=== PATIENT | female | born 1985 | race Caucasian/White ===

== ENCOUNTER 2018-03-16 10:28 | Emergency (ER) | payer OTHER ==
--- NOTE | 2018-03-16 10:51 | ED ---
General Adult HPI - General Chief complaint: Upper Respiratory Infection Stated complaint: cough/congestion Time Seen by Provider: 03/16/18 10:41 Source: patient, RN notes reviewed Mode of arrival: ambulatory Limitations: no limitations - History of Present Illness Initial comments: Patient 32-year-old female presenting to the emergency room today with a chief complaint of cough congestion over the last 2 weeks. Patient does admit that she began feeling some discomfort left side of the upper back and was worried about pneumonia. Patient doesn't that she's had green sputum production. She does admit some rhinorrhea. Patient denies any recorded temperatures. Denies any other complaints or symptoms at this time. Patient denies any recent fever, chills, shortness of breath, chest pain, back pain, abdominal pain, nausea or vomiting, numbness or tingling, headaches or visual changes, or any other complaints. - Related Data Home Medications Medication Instructions Recorded Confirmed Ibuprofen [Motrin Ib] 400 mg PO Q6H PRN 03/16/18 03/16/18 Previous Rx's Medication Instructions Recorded Azithromycin [Zithromax Z-pack] 0 mg PO DIRECTED #6 tab 03/16/18 Ibuprofen [Motrin] 600 mg PO Q6HR PRN #20 day 03/16/18 Allergies Allergy/AdvReac Type Severity Reaction Status Date / Time No Known Allergies Allergy Verified 03/16/18 10:41 Review of Systems ROS Statement: Those systems with pertinent positive or pertinent negative responses have been documented in the HPI. ROS Other: All systems not noted in ROS Statement are negative. Past Medical History Past Medical History: No Reported History History of Any Multi-Drug Resistant Organisms: None Reported Additional Past Surgical History / Comment(s): rhinoplasty 2010 Past Psychological History: No Psychological Hx Reported Smoking Status: Never smoker Past Alcohol Use History: Occasional Past Drug Use History: Marijuana General Exam - General Exam Comments Initial Comments: General: The patient is awake and alert, in no distress, and does not appear acutely ill. Eye: extra-ocular movements are intact. No nystagmus. There is normal conjunctiva bilaterally. No signs of icterus. Ears, nose, mouth and throat: There are moist mucous membranes and no oral lesions. Neck: The neck is supple, there is no tenderness or JVD. Cardiovascular: There is a regular rate and rhythm. No murmur, rub or gallop is appreciated. Respiratory: Lungs are clear to auscultation, respirations are non-labored, breath sounds are equal. No wheezes, stridor, rales, or rhonchi. Musculoskeletal: Normal ROM, no tenderness. Sensation intact. Neurological: A&O x 3. CN II-XII intact, There are no obvious motor or sensory deficits. Coordination appears grossly intact. Speech is normal. Skin: Skin is warm and dry and no rashes or lesions are noted. Psychiatric: Cooperative, appropriate mood & affect, normal judgment. Limitations: no limitations Course Vital Signs 03/16/18 03/16/18 10:31 11:05 Temperature 98.2 F Pulse Rate 97 Respiratory 16 18 Rate Blood Pressure 129/87 O2 Sat by Pulse 100 Oximetry Medical Decision Making - Medical Decision Making X-ray reviewed negative for any sign of pneumonia. No other acute abnormality. Results were discussed with patient. Patient does admit to cough congestion over the past 2 weeks. Will be treated for bronchitis infection with azithromycin. Advised follow-up with family doctor return if symptoms increase or worsen. Disposition Clinical Impression: Acute bronchitis Disposition: HOME SELF-CARE Condition: Good Instructions: Upper Respiratory Infection (ED) Additional Instructions: Please use medication as discussed. Please follow-up with family doctor in the next 2 days of symptoms have not improved. Please return to emergency room if the symptoms increase or worsen or for any other concerns. Prescriptions: Azithromycin [Zithromax Z-pack] 0 mg PO DIRECTED #6 tab Ibuprofen [Motrin] 600 mg PO Q6HR PRN #20 day PRN Reason: Pain Is patient prescribed a controlled substance at d/c from ED?: No Referrals: None,Stated [Primary Care Provider] - 1-2 days Time of Disposition: 11:50
[2018-03-16 11:06] VITALS: RESP 18
--- NOTE | 2018-03-16 11:26 | XR ---
EXAMINATION TYPE: XR chest 2V DATE OF EXAM: 03/16/2018 COMPARISON: NONE HISTORY: Chest pain TECHNIQUE: Single frontal view of the chest is obtained. FINDINGS: There is no focal air space opacity, pleural effusion, or pneumothorax seen. The cardiac silhouette size is within normal limits. The osseous structures are intact. IMPRESSION: 1. No acute process.
[2018-03-16] MEDS ORDERED: IBUPROFEN 600 MG TAB PO STA (11:50)
[2018-03-16 12:09] VITALS: BP 138/80; PULSE 78; TEMP 97.4
== END 2018-03-16 12:08 | disposition home or self-care (01) ==
LOC: EC 10:28
DX: J20.9 Acute bronchitis, unspecified (principal)
CPT/HCPCS: 71046; 99283

== ENCOUNTER → 2020-07-20 | Outpatient (CLI) | payer OTHER ==
--- NOTE | 2020-07-20 15:37 | US ---
EXAMINATION TYPE: Transabdominal DATE OF EXAM: 07/20/2020 2:34 PM COMPARISON: NONE CLINICAL HISTORY: Z36 confirm dates. Confirm dates, 3, para 2 EXAM PERFORMED: Transabdominal (TA) EXAM MEASUREMENTS: GESTATIONAL AGE / DATING Physician Established: (9 weeks/6 days) EDC: 02/16/2021 Dates by LMP: Unknown ( weeks/ days) EDC: Dates by First Scan: This is 1st scan Dates by Current Scan for: ( 8 weeks/5 days) EDC: 02/24/2021 MATERNAL ANATOMY Uterus: 9.3 x 6.4 x 7.0cm, anteverted Right Ovary: 3.1 x 2.0 x 2.5cm Left Ovary: 3.0 x 1.6 x 1.9cm Post CDS / Adnexa: wnl Presence of free fluid: no Presence of corpus luteal cyst: right ovary: 1.8 x 1.1 x 1.5cm Presence of subchorionic bleed: wnl GESTATION / SURVEY CRL: 2.1cm (8 weeks/5 days) Yolk Sac (normal less than 6mm): 4.0mm Heart Rate: 172 bpm Rhythm: Normal IUP: Viable IUP Viable single IUP IMPRESSION: 1. Single intrauterine gestation estimated at 8 weeks 5 days gestation based on crown-rump length. Ca rdiac activity measures 172 bpm. 2. Right ovarian cyst
== END | disposition home or self-care (01) ==
LOC: RADUSWWP 14:14
PROVIDERS: ATTEND Obstetrics & Gynecology
DX: N83.201 Unspecified ovarian cyst, right side (principal); Z3A.08 8 weeks gestation of pregnancy
CPT/HCPCS: 76801

== ENCOUNTER 2020-10-09 15:28 | Emergency (ER) | payer OTHER ==
[2020-10-09 15:33] VITALS: BP 128/88; PULSE 100; RESP 18; TEMP 98.3
[2020-10-09] MEDS ORDERED: LIDOCAINE 1% INJ 10MG/ML (20 ML MDV) SQ ONE (15:52)
[2020-10-09] MEDS ORDERED: BACITRACIN OINT 1 EACH PACKET TOPICAL ONE (15:52)
--- NOTE | 2020-10-09 16:15 | ED ---
Wound/Laceration HPI - General Chief Complaint: Wound/Laceration Stated Complaint: [facility]- R hand laceration Time Seen by Provider: 10/09/20 15:42 Source: patient Mode of arrival: ambulatory Limitations: no limitations - History of Present Illness Initial Comments: Patient is a 35-year-old female presenting to the emergency Department with complaints of a laceration on her right hand. Patient states she was pouring a drink at work today at when the glass broke and slipped in her hand and cut her in the webbing space between the first and second digit on the right hand. She is currently 5 months . She is not on blood thinners. Bleeding is controlled with bandage. Her tetanus shot is not up-to-date. She has no further complaints. - Related Data Home Medications Medication Instructions Recorded Confirmed Ibuprofen [Motrin Ib] 400 mg PO Q6H PRN 03/16/18 03/16/18 Previous Rx's Medication Instructions Recorded Azithromycin [Zithromax Z-pack (6 0 mg PO DIRECTED #6 tab 03/16/18 tabs)] Ibuprofen [Motrin] 600 mg PO Q6HR PRN #20 day 03/16/18 Allergies Allergy/AdvReac Type Severity Reaction Status Date / Time No Known Allergies Allergy Verified 10/09/20 15:33 Review of Systems ROS Statement: Those systems with pertinent positive or pertinent negative responses have been documented in the HPI. ROS Other: All systems not noted in ROS Statement are negative. Past Medical History Past Medical History: No Reported History History of Any Multi-Drug Resistant Organisms: None Reported Additional Past Surgical History / Comment(s): rhinoplasty 2009, Past Psychological History: No Psychological Hx Reported Smoking Status: Never smoker Past Alcohol Use History: Occasional Past Drug Use History: Marijuana General Exam - General Exam Comments Initial Comments: GENERAL: Patient is well-developed and well-nourished. Patient is nontoxic and in no acute distress. HEAD: Atraumatic, normocephalic. EYES: Pupils equal round and reactive to light, extraocular movements intact, sclera anicteric, conjunctiva are normal. Eyelids were unremarkable. ENT: TMs normal, nares patent, oropharynx clear without exudates. Moist mucous membranes. NECK: Normal range of motion, supple without lymphadenopathy or JVD. LUNGS: Unlabored respirations. Breath sounds clear to auscultation bilaterally and equal. No wheezes rales or rhonchi. HEART: Regular rate and rhythm without murmurs, rubs or gallops. ABDOMEN: Soft, nontender, normoactive bowel sounds. No guarding, no rebound. No masses appreciated. : Deferred MUSCULOSKELETAL: Normal extremities with adequate strength and normal range of motion, no pitting or edema. No clubbing or cyanosis. NEUROLOGICAL: Patient is alert and oriented x 3. Motor and sensory are also intact. Cranial nerves II through XII grossly intact. Symmetrical smile. Normal speech, normal gait. PSYCH: Normal mood, normal affect. SKIN: Warm, Dry, normal turgor, no rashes. Patient has a 1 cm V-shaped laceration in the webbing space between the first and second digit, bleeding is controlled. Limitations: no limitations Course Vital Signs 10/09/20 15:30 Temperature 98.3 F Pulse Rate 100 Respiratory 18 Rate Blood Pressure 128/88 O2 Sat by Pulse 100 Oximetry Procedures - Laceration Laceration #1 Consent Obtained: verbal consent Indication: laceration Site: hand (Webbing space between the first and second digit of the right hand) Size (cm): 1 Description: flap Depth: simple, single layer Anesthetic Used: lidocaine 1% Anesthesia Technique: local infiltration Amount (mls): 3 Pre-repair: irrigated extensively Type of Sutures: nylon Size of Sutures: 5-0 Number of Sutures: 3 Technique: simple, interrupted Patient Tolerated Procedure: well Medical Decision Making - Medical Decision Making Patient is 35-year-old female here with a 1 cm V-shaped laceration in the webbing space between the first and second digit on the right hand. She did this while at work, glass broke. We did update her tetanus shot today. X-rays reveal no acute foreign bodies in her hand. Patient's wound was cleaned, closed with 3, 5-0 sutures. She tolerated procedure well. She is stable for discharge. She will have sutures removed in 7-10 days. She is in agreement with this plan of care. Disposition Clinical Impression: Laceration of right hand Disposition: HOME SELF-CARE Condition: Stable Instructions (If sedation given, give patient instructions): Care For Your Stitches (ED) Additional Instructions: Please return to the Emergency Department if symptoms worsen or any other concerns. Keep wound clean and dry. Please cover while working. Stitches need to be removed in 7-10 days. Is patient prescribed a controlled substance at d/c from ED?: No Referrals: None,Stated [Primary Care Provider] - 1-2 days
[2020-10-09] MEDS ORDERED: DIPH,PERTUS(ACELL)TETVAC-LF 0.5 ML VIAL IM ONE (16:18)
--- NOTE | 2020-10-09 16:20 | XR ---
EXAMINATION TYPE: XR hand limited RT DATE OF EXAM: 10/09/2020 COMPARISON: NONE HISTORY: Pain and laceration between the first and second digit TECHNIQUE: Three views are submitted. FINDINGS: The osseous structures are intact. The joint spaces are preserved and there is no acute fracture or dislocation. IMPRESSION: 1. No definite acute fracture or dislocation if symptoms persist, follow-up study in 7 to 10 days wo uld be suggested
== END 2020-10-09 16:48 | disposition home or self-care (01) ==
LOC: EC 15:28
DX: S61.411A Laceration without foreign body of right hand, initial encounter (principal); F12.90 Cannabis use, unspecified, uncomplicated; Z23 Encounter for immunization; W25.XXXA Contact with sharp glass, initial encounter
CPT/HCPCS: 73120; 90715; 99283; 12001; 90471; J2001

== ENCOUNTER 2021-01-26 13:27 | Outpatient (CLI) | payer OTHER ==
[2021-01-26 14:13] VITALS: BP 134/89; PULSE 97; RESP 18; TEMP 97.1
--- NOTE | 2021-01-27 08:17 | P.MSEPDOC ---
Presenting Problems - Arrival Data Date of Arrival on Unit: 01/26/21 Time of Arrival on Unit: 13:26 Mode of Transport: Ambulatory - Complaint OB-Reason for Admission/Chief Complaint: NST Comment: reports decrease movement since yesterday afternoon. Medical History - Information : 4 Para: 2 Term: 2 : 0 Abortions: Spontaneous or Elective: 1 Number of Living Children: 2 - Gestational Age Gestational Age by JUSTUS (wks/days): 35 Weeks and 6 Days Review of Systems - Review of Systems Constitutional: No problems Breast: No problems ENT: No problems Cardiovascular: No problems Respiratory: No problems Gastrointestinal: No problems Genitourinary: No problems Musculoskeletal: No problems Neurological: No problems Skin: No problems Vital Signs - Temperature Temperature: 97.1 F Temperature Source: Temporal Artery Scan - Pulse Right Pulse Rate: 97 Pulse Assessment Method: Pulse Oximetry - Respirations Respiratory Rate: 18 Oxygen Delivery Method: Room Air O2 Sat by Pulse Oximetry: 97 - Blood Pressure Right Arm Blood Pressure: 134/89 Blood Pressure Mean: 104 Blood Pressure Source: Automatic Cuff Medical Screen Scoring - Cervical Exam Membranes: Intact - Uterine Contractions Intensity: Absent - Assessment - Baby A Baseline FHR: 135 Heart Rate - NICHD Category: Category I (Normal) NST: Reactive Physician Notification - Physician Notified Physician Notified Date: 01/26/21 Physician Notified Time: 13:58 Physician: New Order Received: Yes (discharge home with follow up instructions.) Maternal Triage Index - Maternal Triage Index Presenting for scheduled procedure w/no complaint: No - Stat/Priority 1 Stat Priority 1: No - Urgent/Priority 2 Urgent Priority 2: No - Prompt/Priority 3 Prompt Priority 3: No - Non-Urgent/Priority 4 Non-Urgent Priority 4: No - Scheduled/Requesting Priority 5 Scheduled/Requesting Priority 5: Yes Criteria Met for Priority 5: NST Disposition - Disposition OB Disposition: Discharge to home Discharge Date: 01/26/21 Discharge Time: 13:59 I agree with the RN Medical Screening Exam: Yes Case reviewed; plan agreed upon as documented in EMR&OBIX.: Yes Diagnosis: DECREASED MOVEMENTS, THIRD TRIMESTER, FETUS 1 (Patient presents to labor and delivery with complaints of change in movement. Patient states that she's feeling the baby move but not is vigorously had she previously. monitoring shows a category 1 heart tones which is very reassuring. Patient was reassured and will follow up with NST on Thursday.)
== END 2021-01-26 13:59 | disposition home or self-care (01) ==
LOC: FBPOP 13:27
PROVIDERS: ATTEND Obstetrics & Gynecology
DX: O36.8130 Decreased fetal movements, third trimester, not applicable or unspecified (principal); Z3A.35 35 weeks gestation of pregnancy
CPT/HCPCS: 59025; G0463; 99213

== ENCOUNTER 2021-02-12 12:22 | Inpatient (IN) | payer OTHER ==
[2021-02-12] MEDS ORDERED: AMPICILLIN 2,000 MG in SODIUM CHLORIDE 0.9% 100 ML IVPB STA (12:47)
[2021-02-12] MEDS ORDERED: LIDOCAINE 0.5% (PF) 5 MG/ML (50 ML SDV) SQ PRN (12:47)
[2021-02-12] MEDS ORDERED: CARBOPROST TROMETHAMINE 250 MCG/ML 1 ML AMP IM PRN (12:47)
[2021-02-12] MEDS ORDERED: OXYTOCIN 10 UNIT/ML 1 ML VIAL IM PRN (12:47)
[2021-02-12] MEDS ORDERED: METHYLERGONOVINE 0.2 MG/ML 1 ML AMP IM PRN (12:47)
[2021-02-12] MEDS ORDERED: TERBUTALINE 1 MG/ML VIAL SQ PRN (12:47)
[2021-02-12] MEDS: LACTATED RINGERS 1,000 ML IV SCH ×3 (12:55→21:54)
[2021-02-12] MEDS ORDERED: OXYTOCIN 30 UNITS/500 ML NS 30 UNIT in SALINE 1 500ML.BAG IV SCH (13:00)
[2021-02-12 14:16] LABS: Basophils % (A) 0 %; Eosinophils # (A) 0.1 k/uL (0-0.7); Eosinophils % (A) 1 %; HCT 32.3 % (34.0-46.0); HGB 10.1 gm/dL (11.4-16.0); Hypochromasia Moderate; Lymphocytes # (A) 1.8 k/uL (1.0-4.8); Lymphocytes % (A) 20 %; MCH 22.2 pg (25.0-35.0); MCHC 31.1 g/dL (31.0-37.0); MCV 71.4 fL (80.0-100.0); Mean Platelet Volume 7.3; Microcytosis Moderate; Monocytes # (A) 0.4 k/uL (0-1.0); Monocytes % (A) 5 %; Neutrophils # (A) 6.4 k/uL (1.3-7.7); Neutrophils % (A) 71 %; Platelet Count 218 k/uL (150-450); Poikilocytosis Slight; RBC 4.53 m/uL (3.80-5.40); RDW 15.8 % (11.5-15.5)
[2021-02-12] MEDS ORDERED: BUTORPHANOL 1 MG/ML 1 ML VIAL IV PRN (16:23)
--- NOTE | 2021-02-12 16:53 | P.HPOB ---
History of Present Illness H&P Date: 02/12/21 Chief Complaint: Oligohydramnios This patient is a pleasant 35-year-old 4 para 2 female estimated date of confinement 02/24/2021 estimated gestational age 38-2/7 weeks who presents to labor and delivery for induction secondary to severe oligohydramnios. Patient was in the office earlier today and ultrasound showed amniotic fluid excessive 2.5. Patient therefore was recommended proceed with delivery. Patient's care is otherwise complicated by advanced for maternal age. She did have a normal maternal ET 21 and anatomy ultrasound. She also was double footling breech approximately several weeks ago however this spontaneously converted to vertex. Patient now presents for delivery. Review of Systems Genitourinary: Reports Menstruation: Reports amenorrhea Past Medical History Past Medical History: No Reported History History of Any Multi-Drug Resistant Organisms: None Reported Additional Past Surgical History / Comment(s): rhinoplasty 2009; D&C. Past Anesthesia/Blood Transfusion Reactions: No Reported Reaction Past Psychological History: No Psychological Hx Reported Smoking Status: Never smoker Past Alcohol Use History: Occasional - Past Family History Father Family Medical History: Congestive Heart Failure (CHF) Medications and Allergies Home Medications Medication Instructions Recorded Confirmed Type No Known Home Medications 01/26/21 01/26/21 History Allergies Allergy/AdvReac Type Severity Reaction Status Date / Time No Known Allergies Allergy Verified 02/12/21 12:47 Exam Vital Signs Temp Pulse Resp BP Pulse Ox 02/12/21 15:01 98.2 F 106 H 16 148/77 99 Intake and Output 02/12/21 02/12/21 02/12/21 06:59 14:59 22:59 Other: # Voids 2 Weight 102.965 kg 102.965 kg - OBG Physical Exam Abdomen: bowel sounds normal, no diffuse tenderness, no bruit present, no guarding noted, no hepatomegaly, no splenomegaly, no mass Vulva: both: normal Vagina: normal moisture, no discharge Cervix: no lesion (Cervix is 2 and thick. There is no evidence of rupture membranes), no discharge Uterus: enlarged (Fundal height is 38 cm) Results blood work shows she is A positive, rubella immune, RPR nonreactive, hepatitis B negative, HIV is nonreactive, Glucola was normal, maternity T 21 was 46 XY, group B strep was positive. Ultrasound shows normal growth 7 lbs. 7 oz. but and severe oligohydramnios with amniotic fluid excess 2.5 Result Diagrams: 02/12/21 12:50 Abnormal Lab Results - Last 24 Hours (Table) 02/12/21 Range/Units 12:50 Hgb 10.1 L (11.4-16.0) gm/dL Hct 32.3 L (34.0-46.0) % MCV 71.4 L (80.0-100.0) fL MCH 22.2 L (25.0-35.0) pg RDW 15.8 H (11.5-15.5) % Assessment and Plan Assessment: This is a pleasant 35-year-old 4 para 2 female 38 and one sevenths weeks gestation admitted to labor and delivery for delivery secondary to severe oligohydramnios. Patient is a positive group B strep culture and therefore be given IV antibiotics. Plan is artificial rupture membranes and Pitocin induction of labor. Anticipate vaginal delivery. (1) 38 weeks gestation of Current Visit: Yes Status: Acute Code(s): Z3A.38 - 38 WEEKS GESTATION OF SNOMED Code(s): 59351093 (2) Oligohydramnios Current Visit: Yes Status: Acute Code(s): O41.00X0 - OLIGOHYDRAMNIOS, UNSP TRIMESTER, NOT APPLICABLE OR UNSP SNOMED Code(s): 93667291 (3) Group B streptococcal carriage complicating Current Visit: Yes Status: Acute Code(s): O99.820 - STREPTOCOCCUS B CARRIER STATE COMPLICATING SNOMED Code(s): 557901297168112 (4) Elderly multigravida Current Visit: Yes Status: Acute Code(s): O09.529 - SUPERVISION OF ELDERLY MULTIGRAVIDA, UNSPECIFIED TRIMESTER SNOMED Code(s): 937358244
[2021-02-12] MEDS: AMPICILLIN 1,000 MG in SODIUM CHLORIDE 0.9% 50 ML IVPB SCH ×2 (17:36→21:53)
[2021-02-12] MEDS ORDERED: ROPIVACAINE 5MG/ML 20ML VIAL ONE (19:14)
[2021-02-12] MEDS ORDERED: SODIUM CHLORIDE 0.9% 100 ML BAG ONE (19:14)
[2021-02-12] MEDS ORDERED: fentaNYL (PF) 50 MCG/ML 5 ML AMP ONE (19:14)
[2021-02-13] MEDS ORDERED: diphenhydrAMINE 50 MG/ML 1 ML VIAL IVP PRN ×2 (00:41)
[2021-02-13] MEDS ORDERED: ZOLPIDEM 5 MG TAB PO PRN (00:41)
[2021-02-13] MEDS ORDERED: LANOLIN CREAM 5 GM TUBE TOPICAL PRN (00:41)
[2021-02-13] MEDS ORDERED: SIMETHICONE 80 MG CHEWABLE PO PRN (00:41)
[2021-02-13] MEDS ORDERED: diphenhydrAMINE 25 MG CAP PO PRN (00:41)
[2021-02-13] MEDS ORDERED: BENZOCAINE/MENTHOL SPRAY 1 GM/SPRAY AEROSOL TOPICAL PRN (00:41)
[2021-02-13] MEDS ORDERED: HYDROCORTISONE 2.5% RECTAL CREAM 30 GM TUBE RECTAL PRN (00:41)
[2021-02-13] MEDS ORDERED: diphenhydrAMINE 50 MG CAP PO PRN (00:41)
--- NOTE | 2021-02-13 00:41 | P.PROBDLV ---
Vaginal Delivery Note - . Vaginal Delivery Note: This patient is a pleasant 35-year-old 4 para 2 female estimated date of confinement 02/24/2021 estimated gestational age 38-2/7 weeks who presents to labor and delivery for induction secondary to severe oligohydramnios. Pitocin augmentation was started and amniotomy was performed at 12:17 PM clear fluid noted. She progressed slowly throughout the day and when she was uncomfortable she did get an epidural. She was given ampicillin throughout her labor due to positive GBS status. Her cervix was completely dilated at 0001 on 02/13/2021. She pushed, delivered a viable male infant over intact perineum under epidural anesthesia at 0027. Head delivered OA, anterior shoulder delivered gentle downward guidance for by posterior shoulder and rest of body. Nose and mouth bulb suctioned, cord clamped and cut, infant placed mother's abdomen. Apgars 8, 9, weight 6 lbs. 7 oz. Placenta delivered spontaneously, intact with three- vessel cord at 0029. Vagina, cervix, perineum inspected. No lacerations noted. Estimated blood loss 150 Bautista's. Mother and baby in stable condition.
[2021-02-13] MEDS ORDERED: OXYTOCIN 30 UNITS/500 ML NS 30 UNIT in SALINE 1 500ML.BAG IV SCH (00:45)
[2021-02-13 01:20] VITALS: RESP 16
[2021-02-13] MEDS: IBUPROFEN 600 MG TAB PO SCH ×4 (02:40→19:50)
[2021-02-13] MEDS: SENNOSIDES-DOCUSATE SODIUM 1 EACH TAB PO SCH ×2 (08:04→19:46)
[2021-02-13] MEDS: ACETAMINOPHEN TAB 325 MG TAB PO PRN ×2 (15:34→23:40)
[2021-02-14 01:31] VITALS: TEMP 98.3
[2021-02-14] MEDS: IBUPROFEN 600 MG TAB PO SCH (01:31)
--- NOTE | 2021-02-14 05:59 | P.PNOBGVD ---
Subjective - Subjective Patient reports: Reports appetite normal, Reports voiding normally, Reports pain well controlled, Reports ambulating normally : doing well Objective - Latest Vital Signs Latest vital signs: Vital Signs Temp Pulse Resp BP 02/14/21 00:00 98.3 F 100 16 139/88 02/13/21 16:00 98.0 F 78 16 136/78 02/13/21 12:00 98.3 F 75 16 130/78 02/13/21 08:00 98.2 F 98 16 132/67 Intake and Output 02/13/21 02/13/21 02/14/21 14:59 22:59 06:59 Other: # Voids 1 1 1 - Exam Lungs: bilateral: normal Chest: Normal S1, Normal S2 Extremities: Present: normal Abdomen: Present: normal appearance, soft Uterus: Present: normal, firm Assessment and Plan Assessment: day #1. Patient is resting without complaints and wishes to go home. Vital signs are stable she's afebrile. Uterus is firm nontender and she is having normal lochia. My impression this is a normal course. Plan is to continue routine care discharge home later today (1) 38 weeks gestation of Current Visit: Yes Status: Acute Code(s): Z3A.38 - 38 WEEKS GESTATION OF SNOMED Code(s): 51440468 (2) Oligohydramnios Current Visit: Yes Status: Acute Code(s): O41.00X0 - OLIGOHYDRAMNIOS, UNSP TRIMESTER, NOT APPLICABLE OR UNSP SNOMED Code(s): 68226601 (3) Group B streptococcal carriage complicating Current Visit: Yes Status: Acute Code(s): O99.820 - STREPTOCOCCUS B CARRIER STATE COMPLICATING SNOMED Code(s): 064739707398818 (4) Elderly multigravida Current Visit: Yes Status: Acute Code(s): O09.529 - SUPERVISION OF ELDERLY MULTIGRAVIDA, UNSPECIFIED TRIMESTER SNOMED Code(s): 986527751
--- NOTE | 2021-02-14 06:00 | P.DS ---
Providers Date of admission: 02/12/21 12:22 Expected date of discharge: 02/14/21 Attending physician: Hiram Lay Primary care physician: Stated None - Discharge Diagnosis(es) (1) 38 weeks gestation of Current Visit: Yes Status: Acute (2) Oligohydramnios Current Visit: Yes Status: Acute (3) Group B streptococcal carriage complicating Current Visit: Yes Status: Acute (4) Elderly multigravida Current Visit: Yes Status: Acute Hospital Course: Please see dictated H&P for intimate details of this patient's admission. Brief summary this is a pleasant 35-year-old 4 para 2 female 38-2/7 weeks gestation admitted to labor and delivery for delivery secondary to oligohydramnios. Patient is admitted she is uncomplicated induction of labor was on have a vaginal delivery viable male infant. Please see dictated delivery note. day 1 patient without complaints she wishes to go home. Patient's felt be stable for discharge home follow up with me in 6 weeks Procedures: Induction of labor and normal vaginal delivery Patient Condition at Discharge: Good Plan - Discharge Summary New Discharge Prescriptions: No Action No Known Home Medications Discharge Medication List No Known Home Medications 01/26/21 [History] Follow up Appointment(s)/Referral(s): Hiram Lay MD [STAFF PHYSICIAN] - 03/27/21 3:00 pm
[2021-02-14 08:05] LABS: Anisocytosis Slight; Basophils % (A) 0 %; Eosinophils # (A) 0.2 k/uL (0-0.7); Eosinophils % (A) 2 %; Hypochromasia Marked; Lymphocytes # (A) 2.6 k/uL (1.0-4.8); Lymphocytes % (A) 26 %; MCH 22.7 pg (25.0-35.0); MCHC 31.2 g/dL (31.0-37.0); MCV 72.7 fL (80.0-100.0); Mean Platelet Volume 8.1; Microcytosis Moderate; Monocytes # (A) 0.4 k/uL (0-1.0); Monocytes % (A) 4 %; Neutrophils # (A) 6.6 k/uL (1.3-7.7); Neutrophils % (A) 66 %; Platelet Count 219 k/uL (150-450); Poikilocytosis Slight; RBC 3.71 m/uL (3.80-5.40); RDW 16.2 % (11.5-15.5); WBC 10.1 k/uL (3.8-10.6)
[2021-02-14 08:07] LABS: HGB 8.4 gm/dL (11.4-16.0)
[2021-02-14 09:39] VITALS: BP 130/80; PULSE 68
== END 2021-02-14 12:00 | disposition home or self-care (01) | DRG 807 ==
LOC: 4FBP 12:22
PROVIDERS: ADMIT Obstetrics & Gynecology; ATTEND Obstetrics & Gynecology
PROC: 10E0XZZ Delivery of Products of Conception, External Approach (ICD-10-PCS; principal; 2021-02-13)
DX: O41.03X0 Oligohydramnios, third trimester, not applicable or unspecified (principal); Z37.0 Single live birth; O99.824 Streptococcus B carrier state complicating childbirth; Z3A.38 38 weeks gestation of pregnancy; Z82.49 Family history of ischemic heart disease and other diseases of the circulatory system
CPT/HCPCS: 85025; 86850; 86900; 86901

== ENCOUNTER 2023-03-24 19:45 | Emergency (ER) | payer OTHER ==
[2023-03-24 19:51] VITALS: RESP 18
[2023-03-24 20:23] VITALS: PULSE 84
[2023-03-24] MEDS ORDERED: SODIUM CHLORIDE 0.9% 1,000 ML IV ONE (20:28)
[2023-03-24 21:15] LABS: Basophils % (A) 0 %; Eosinophils # (A) 0.2 k/uL (0-0.7); Eosinophils % (A) 4 %; HCT 34.4 % (34.0-46.0); HGB 10.7 gm/dL (11.4-16.0); Hypochromasia Moderate; Lymphocytes # (A) 2.4 k/uL (1.0-4.8); Lymphocytes % (A) 42 %; MCH 23.9 pg (25.0-35.0); MCHC 31.2 g/dL (31.0-37.0); MCV 76.4 fL (80.0-100.0); Mean Platelet Volume 8.2; Microcytosis Slight; Monocytes # (A) 0.3 k/uL (0-1.0); Monocytes % (A) 5 %; Neutrophils # (A) 2.6 k/uL (1.3-7.7); Neutrophils % (A) 46 %; Platelet Count 240 k/uL (150-450); RDW 15.6 % (11.5-15.5); WBC 5.7 k/uL (3.8-10.6)
[2023-03-24 21:23] LABS: INR 0.9 (<1.2); Partial Thromboplastin Time 24.1 sec (22.0-30.0); Prothrombin Time 9.7 sec (9.0-12.0)
[2023-03-24 21:25] LABS: ALT 19 U/L (4-34); AST 22 U/L (14-36); African American GFR (CKD) >90 (>60 ml/min/1.73 sqM); Albumin 3.8 g/dL (3.5-5.0); Alkaline Phosphatase 55 U/L (38-126); Anion Gap 7 mmol/L; Blood Urea Nitrogen 16 mg/dL (7-17); Calcium 8.6 mg/dL (8.4-10.2); Carbon Dioxide 26 mmol/L (22-30); Chloride 104 mmol/L (98-107); Glucose 82 mg/dL (74-99); Non-African American GFR(CKD) >90 (>60 ml/min/1.73 sqM); Potassium 4.1 mmol/L (3.5-5.1); Sodium 137 mmol/L (137-145); Total Bilirubin 0.2 mg/dL (0.2-1.3); Total Protein 6.7 g/dL (6.3-8.2)
--- NOTE | 2023-03-24 21:37 | US ---
EXAMINATION TYPE: US pelvic complete DATE OF EXAM: 03/24/2023 COMPARISON: 07/20/2020 CLINICAL INDICATION: Female, 37 years old with history of vaginal bleeding; Pt states she was 11 days late for period, then started bleeding for 3 weeks straight. TECHNIQUE: . Transabdominal sonographic images of the pelvis were acquired. Date of LMP: 03/03/23 EXAM MEASUREMENTS: Uterus: 7.9 x 6.8 x 5.0 cm Endometrial Stripe: 1.0 cm Right Ovary: 4.1 x 2.1 x 1.9 cm Left Ovary: 5.3 x 5.2 x 3.5 cm 1. Uterus: Anteverted wnl 2. Endometrium: wnl. IUD appears to be in correct position 3. Right Ovary: Cystic area seen measuring 1.7 x 1.9 x 1.1cm 4. Left Ovary: Large cyst seen measuring 5.2 x 4.6 x 3.2cm Spectral, color and waveform doppler imaging shows good arterial and venous flow within the ovaries ; there is no evidence for ovarian torsion. 5. Bilateral Adnexa: wnl 6. Posterior cul-de-sac: wnl IMPRESSION: 1. Probable functional ovarian cysts which can be confirmed on follow-up study in 6 weeks. 2. IUD.
--- NOTE | 2023-03-24 22:02 | ED ---
General Adult HPI - General Chief complaint: Vaginal Bleeding Stated complaint: personal issues Time Seen by Provider: 03/24/23 20:01 Source: patient, RN notes reviewed Mode of arrival: ambulatory Limitations: no limitations - History of Present Illness Initial comments: 37-year-old female presents emergency Department with chief complaint of vaginal bleeding. Patient states that she started experiencing vaginal bleeding around 8123 and has been continuously bleeding since then. She is unable to quantify the amount of pads or tampons that she is using but it is less than 1/h. She reports that she typically has regular monthly menstrual periods lasting 4 days. Denies fever, chills, abdominal pain or cramping, nausea, vomiting. She reports that she has been attempting to get into see IMMIGRATION INVESTIGATOR but has been unable to thus far. - Related Data Previous Rx's Medication Instructions Recorded Ibuprofen [Motrin] 600 mg PO Q6H #30 tab 02/14/21 Allergies Allergy/AdvReac Type Severity Reaction Status Date / Time No Known Allergies Allergy Verified 03/24/23 19:51 Review of Systems ROS Statement: Those systems with pertinent positive or pertinent negative responses have been documented in the HPI. ROS Other: All systems not noted in ROS Statement are negative. Past Medical History Past Medical History: No Reported History History of Any Multi-Drug Resistant Organisms: None Reported Past Surgical History: No Surgical Hx Reported Additional Past Surgical History / Comment(s): rhinoplasty 2009; D&C. Past Anesthesia/Blood Transfusion Reactions: No Reported Reaction Past Psychological History: No Psychological Hx Reported Smoking Status: Never smoker Past Alcohol Use History: Occasional Past Drug Use History: None Reported - Past Family History Father Family Medical History: Congestive Heart Failure (CHF) General Exam Limitations: no limitations General appearance: alert, in no apparent distress Head exam: Present: atraumatic, normocephalic, normal inspection Eye exam: Present: normal appearance, PERRL, EOMI. Absent: scleral icterus, conjunctival injection, periorbital swelling ENT exam: Present: normal exam, normal oropharynx, mucous membranes moist Neck exam: Present: normal inspection. Absent: tenderness, meningismus, lymphadenopathy Respiratory exam: Present: normal lung sounds bilaterally. Absent: respiratory distress, wheezes, rales, rhonchi, stridor Cardiovascular Exam: Present: regular rate, normal rhythm, normal heart sounds. Absent: systolic murmur, diastolic murmur, rubs, gallop, clicks GI/Abdominal exam: Present: soft, normal bowel sounds. Absent: distended, tenderness, guarding, rebound, rigid Extremities exam: Present: normal inspection, full ROM, normal capillary refill. Absent: tenderness, pedal edema, joint swelling, calf tenderness Back exam: Present: normal inspection Neurological exam: Present: alert, oriented X3, CN II-XII intact Psychiatric exam: Present: normal affect, normal mood Skin exam: Present: warm, dry, intact, normal color. Absent: rash Course Vital Signs 03/24/23 03/24/23 03/24/23 19:49 20:16 20:20 Temperature 98.5 F 98.6 F Pulse Rate 75 84 Respiratory 18 18 Rate Blood Pressure 137/85 133/80 O2 Sat by Pulse 100 100 100 Oximetry 03/24/23 03/24/23 03/24/23 21:00 22:00 22:42 Temperature 98.4 F 98.2 F 98.2 F Pulse Rate 82 84 Respiratory 18 18 Rate Blood Pressure 133/80 115/91 O2 Sat by Pulse 100 Oximetry Medical Decision Making - Medical Decision Making Was pt. sent in by a medical professional or institution (, PA, ATTORNEY RECRUITER, urgent care, hospital, or senior care...) When possible be specific @ -No Did you speak to anyone other than the patient for history (EMS, parent, family, police, friend...)? What history was obtained from this source @ -No Did you review nursing and triage notes (agree or disagree)? Why? @ -I reviewed and agree with nursing and triage notes Were old charts reviewed (outside hosp., previous admission, EMS record, old EKG, old radiological studies, urgent care reports/EKG's, senior care records)? Report findings @ -No old charts were reviewed Differential Diagnosis (chest pain, altered mental status, abdominal pain women, abdominal pain men, vaginal bleeding, weakness, fever, dyspnea, syncope, headache, dizziness, GI bleed, back pain, seizure, CVA, palpatations, mental health, musculoskeletal)? @ -Differential Vaginal Bleeding: Spontaneous , threatened , molar , ectopic , bloody show, incompetent cervix, abruptioplacenta, placenta previa, uterine rupture, dysfunctional uterine bleeding, hemorrhage, uterine fib roids, this is not meant to be an all-inclusive list. EKG interpreted by me (3pts min.). @ -None X-rays interpreted by me (1pt min.). @ -None done CT interpreted by me (1pt min.). @ -None done U/S interpreted by me (1pt. min.). @ -Pelvic ultrasound showed IUD in correct position, ovarian cyst bilaterally What testing was considered but not performed or refused? (CT, X-rays, U/S, labs)? Why? @ -None What meds were considered but not given or refused? Why? @ -None Did you discuss the management of the patient with other professionals (professionals i.e. Dr., PA, ATTORNEY RECRUITER, lab, RT, psych nurse, social media assistant, sugar sampler, teacher, drug abuse resistance education officer, case checker)? Give summary @ -No Was smoking cessation discussed for >3mins.? @ -No Was critical care preformed (if so, how long)? @ -No Were there social determinants of health that impacted care today? How? (Homelessness, low income, unemployed, alcoholism, drug addiction, transportation, low edu. Level, literacy, decrease access to med. care, prison, rehab)? @ -No Was there de-escalation of care discussed even if they declined (Discuss DNR or withdrawal of care, Hospice)? DNR status @ -No What co-morbidities impacted this encounter? (DM, HTN, Smoking, COPD, CAD, Cancer, CVA, ARF, Chemo, Hep., AIDS, mental health diagnosis, sleep apnea, morbid obesity)? @ -None Was patient admitted / discharged? Hospital course, mention meds given and route, prescriptions, significant lab abnormalities, going to OR and other pertinent info. @ -Discharged. female presented to emergency department chief complaint of vaginal bleeding 3 weeks. She reports normal periods prior to this. She is unable to quantify the amount of pads pamphlets that she has been using but states it is less than one every couple hours. CBC showed WBC 5.7, hemoglobin 10.7; CMP showed sodium 137, potassium 4.1, creatinine 0.73; UA shows no evidence for infection, large blood likely from vaginal origin. Ultrasound obtained which showed possible functional ovarian cysts bilaterally, no evidence of ovarian torsion, follow-up ultrasound in 6 weeks recommended discussed this with the patient. Patient declined pelvic exam. Patient will follow with local patient access director. Patient stable at time of discharge. Case discussed with attending, Dr. Rosas. Undiagnosed new problem with uncertain prognosis? @ -No Drug Therapy requiring intensive monitoring for toxicity (Heparin, Nitro, Insulin, Cardizem)? @ -No Were any procedures done? @ -No Diagnosis/symptom? @ -Dysmenorrhea Acute, or Chronic, or Acute on Chronic? @ -Acute Uncomplicated (without systemic symptoms) or Complicated (systemic symptoms)? @ -Uncomplicated Side effects of treatment? @ -No Exacerbation, Progression, or Severe Exacerbation? @ -No Poses a threat to life or bodily function? How? (Chest pain, [place], [place], pneumonia, PE, COPD, DKA, ARF, appy, cholecystitis, CVA, Diverticulitis, Homicidal, [place] icidal, threat to staff... and all critical care pts) @ -No - Lab Data Result diagrams: 03/24/23 20:44 03/24/23 20:44 Lab Results 03/24/23 03/24/23 03/24/23 Range/Units 18:55 20:44 20:44 WBC 5.7 (3.8-10.6) k/uL RBC 4.50 (3.80-5.40) m/uL Hgb 10.7 L (11.4-16.0) gm/dL Hct 34.4 (34.0-46.0) % MCV 76.4 L (80.0-100.0) fL MCH 23.9 L (25.0-35.0) pg MCHC 31.2 (31.0-37.0) g/dL RDW 15.6 H (11.5-15.5) % Plt Count 240 (150-450) k/uL MPV 8.2 Neutrophils % 46 % Lymphocytes % 42 % Monocytes % 5 % Eosinophils % 4 % Basophils % 0 % Neutrophils # 2.6 (1.3-7.7) k/uL Lymphocytes # 2.4 (1.0-4.8) k/uL Monocytes # 0.3 (0-1.0) k/uL Eosinophils # 0.2 (0-0.7) k/uL Basophils # 0.0 (0-0.2) k/uL Hypochromasia Moderate Microcytosis Slight PT (9.0-12.0) sec INR (<1.2) APTT (22.0-30.0) sec Sodium (137-145) mmol/L Potassium (3.5-5.1) mmol/L Chloride (98-107) mmol/L Carbon Dioxide (22-30) mmol/L Anion Gap mmol/L BUN (7-17) mg/dL Creatinine (0.52-1.04) mg/dL Est GFR (CKD-EPI)AfAm (>60 ml/min/1.73 sqM) Est GFR (CKD-EPI)NonAf (>60 ml/min/1.73 sqM) Glucose (74-99) mg/dL Calcium (8.4-10.2) mg/dL Total Bilirubin (0.2-1.3) mg/dL AST (14-36) U/L ALT (4-34) U/L Alkaline Phosphatase (38-126) U/L Total Protein (6.3-8.2) g/dL Albumin (3.5-5.0) g/dL Urine Color Yellow Urine Appearance Clear (Clear) Urine pH 7.0 (5.0-8.0) Ur Specific [place] 1.022 (1.001-1.035) Urine Protein Negative (Negative) Urine Glucose (UA) Negative (Negative) Urine Ketones Negative (Negative) Urine Blood Large H (Negative) Urine Nitrite Negative (Negative) Urine Bilirubin Negative (Negative) Urine Urobilinogen <2.0 (<2.0) mg/dL Ur Leukocyte Esterase Negative (Negative) Urine RBC >182 H (0-5) /hpf Urine WBC 1 (0-5) /hpf Ur Squamous Epith Cells 4 (0-4) /hpf Urine Mucus Rare H (None) /hpf Urine HCG, Qual (Not Detectd) Blood Type A Positive Blood Type Recheck A Pos Bld Type Recheck Status No Antibody Screen NEGATIVE Spec Expiration Date 03/27/2023235403/24/23 03/24/23 03/24/23 Range/Units 20:44 20:44 20:44 WBC (3.8-10.6) k/uL RBC (3.80-5.40) m/uL Hgb (11.4-16.0) gm/dL Hct (34.0-46.0) % MCV (80.0-100.0) fL MCH (25.0-35.0) pg MCHC (31.0-37.0) g/dL RDW (11.5-15.5) % Plt Count (150-450) k/uL MPV Neutrophils % % Lymphocytes % % Monocytes % % Eosinophils % % Basophils % % Neutrophils # (1.3-7.7) k/uL Lymphocytes # (1.0-4.8) k/uL Monocytes # (0-1.0) k/uL Eosinophils # (0-0.7) k/uL Basophils # (0-0.2) k/uL Hypochromasia Microcytosis PT 9.7 (9.0-12.0) sec INR 0.9 (<1.2) APTT 24.1 (22.0-30.0) sec Sodium 137 (137-145) mmol/L Potassium 4.1 (3.5-5.1) mmol/L Chloride 104 (98-107) mmol/L Carbon Dioxide 26 (22-30) mmol/L Anion Gap 7 mmol/L BUN 16 (7-17) mg/dL Creatinine 0.73 (0.52-1.04) mg/dL Est GFR (CKD-EPI)AfAm >90 (>60 ml/min/1.73 sqM) Est GFR (CKD-EPI)NonAf >90 (>60 ml/min/1.73 sqM) Glucose 82 (74-99) mg/dL Calcium 8.6 (8.4-10.2) mg/dL Total Bilirubin 0.2 (0.2-1.3) mg/dL AST 22 (14-36) U/L ALT 19 (4-34) U/L Alkaline Phosphatase 55 (38-126) U/L Total Protein 6.7 (6.3-8.2) g/dL Albumin 3.8 (3.5-5.0) g/dL Urine Color Urine Appearance (Clear) Urine pH (5.0-8.0) Ur Specific [place] (1.001-1.035) Urine Protein (Negative) Urine Glucose (UA) (Negative) Urine Ketones (Negative) Urine Blood (Negative) Urine Nitrite (Negative) Urine Bilirubin (Negative) Urine Urobilinogen (<2.0) mg/dL Ur Leukocyte Esterase (Negative) Urine RBC (0-5) /hpf Urine WBC (0-5) /hpf Ur Squamous Epith Cells (0-4) /hpf Urine Mucus (None) /hpf Urine HCG, Qual Not Detected (Not Detectd) Blood Type Blood Type Recheck Bld Type Recheck Status Antibody Screen Spec Expiration Date Disposition Clinical Impression: Menometrorrhagia Disposition: HOME SELF-CARE Condition: Stable Instructions (If sedation given, give patient instructions): Dysmenorrhea (ED) Additional Instructions: Please follow up with gynecology. Return to the emergency department for new or worsening symptoms. Is patient prescribed a controlled substance at d/c from ED?: No Referrals: None,Stated [Primary Care Provider] - 1-2 days Winnie Chávez DO [Doctor of Osteopathic Medicine] - 1-2 days Allison Flowers DO [Doctor of Osteopathic Medicine] - 1-2 days Hiram Lay MD [STAFF PHYSICIAN] - 1-2 days Time of Disposition: 23:06
[2023-03-24 22:30] LABS: Appearance,Urine Clear (Clear); Bilirubin,Urine Negative (Negative); Blood,Urine Large (Negative); Color,Urine Yellow; Glucose,Urine (UA) Negative (Negative); Ketones,Urine Negative (Negative); Leukocyte Esterase,Urine Negative (Negative); Mucus,Urine Rare /hpf; Nitrite,Urine Negative (Negative); Protein,Urine Negative (Negative); RBC,Urine >182 /hpf (0-5); Specific Gravity,Urine 1.022 (1.001-1.035); Squamous Epithelial Cell,Urine 4 /hpf (0-4); Urobilinogen,Urine <2.0 mg/dL (<2.0); WBC,Urine 1 /hpf (0-5)
[2023-03-24 22:43] VITALS: TEMP 98.2
[2023-03-24 22:44] VITALS: BP 115/91
== END 2023-03-24 23:14 | disposition home or self-care (01) ==
LOC: EC 19:45
DX: N92.1 Excessive and frequent menstruation with irregular cycle (principal)
CPT/HCPCS: 36415; 76856; 80053; 81001; 81025; 85025; 85610; 85730; 86850; 86900; 86901; 93975; 96360; 96361; 99284

== ENCOUNTER 2024-01-15 10:27 | Emergency (ER) | payer OTHER ==
--- NOTE | 2024-01-15 10:50 | ED ---
General Adult HPI - General Chief complaint: Recheck/Abnormal Lab/Rx Stated complaint: Throat Pain Time Seen by Provider: 01/15/24 10:48 Source: patient, RN notes reviewed Mode of arrival: ambulatory Limitations: no limitations - History of Present Illness Initial comments: This is a 38 year old female who presents to the emergency department for a strange sensation in her chest/throat. States that she feels like something is going "up and down" in her chest and throat and she also feels like she is gagging. Wonders if she may have a hernia. This is making it difficult for her to swallow, however patient is noted to be drinking coffee in the emergency department. Denies any hx of GERD/acid reflux. - Related Data Previous Rx's Medication Instructions Recorded Ibuprofen [Motrin] 600 mg PO Q6H #30 tab 02/14/21 Pantoprazole Sodium 40 mg PO DAILY #14 tab 01/15/24 Allergies Allergy/AdvReac Type Severity Reaction Status Date / Time No Known Allergies Allergy Verified 01/15/24 10:52 Review of Systems ROS Statement: Those systems with pertinent positive or pertinent negative responses have been documented in the HPI. ROS Other: All systems not noted in ROS Statement are negative. Past Medical History Past Medical History: No Reported History History of Any Multi-Drug Resistant Organisms: None Reported Past Surgical History: No Surgical Hx Reported Additional Past Surgical History / Comment(s): rhinoplasty 2009; D&C. Past Anesthesia/Blood Transfusion Reactions: No Reported Reaction Past Psychological History: No Psychological Hx Reported Smoking Status: Never smoker Past Alcohol Use History: Occasional Past Drug Use History: None Reported - Past Family History Father Family Medical History: Congestive Heart Failure (CHF) General Exam Limitations: no limitations General appearance: alert, in no apparent distress Head exam: Present: atraumatic, normocephalic, normal inspection ENT exam: Present: normal exam, normal oropharynx, mucous membranes moist Neck exam: Present: normal inspection. Absent: tenderness, meningismus, lymphadenopathy Respiratory exam: Present: normal lung sounds bilaterally. Absent: respiratory distress, wheezes, rales, rhonchi, stridor Cardiovascular Exam: Present: regular rate, normal rhythm, normal heart sounds. Absent: systolic murmur, diastolic murmur, rubs, gallop, clicks GI/Abdominal exam: Present: soft, normal bowel sounds. Absent: distended, tenderness, guarding, rebound, rigid Neurological exam: Present: alert, oriented X3, CN II-XII intact Psychiatric exam: Present: normal affect, normal mood Skin exam: Present: warm, dry, intact, normal color. Absent: rash Course Vital Signs 01/15/24 01/15/24 10:47 13:01 Temperature 98.1 F 98.0 F Pulse Rate 95 68 Respiratory 16 18 Rate Blood Pressure 168/78 162/68 O2 Sat by Pulse 100 98 Oximetry Medical Decision Making - Medical Decision Making This is a 38 year old female who presents to the emergency department for difficulty swallowing. Was pt. sent in by a medical professional or institution? @ -No Did you speak to anyone other than the patient for history? @ -No Did you review nursing and triage notes? @ -Yes, and I agree, it is accurate with regards to the patient's symptoms. Were old charts reviewed? @ -No Differential Diagnosis? @ -Differential Dysphagia: GERD, esophageal stricture, hiatal hernia, this is not meant to be an all- inclusive list. EKG interpreted by me (3pts min.)? @ -Not obtained X-rays interpreted by me (1pt min.)? @ -Chest x-ray obtained, my interpretation identifies no localized consolidations or infiltrates. X-ray of the soft tissue neck obtained. My interpretation identifies no evidence of airway narrowing. CT interpreted by me (1pt min.)? @ -Not obtained U/S interpreted by me (1pt. min.)? @ -Not obtained What testing was considered but not performed? (CT, X-rays, U/S, labs)? Why? @ -None What meds were considered but not given? Why? @ -None Did you discuss the management of the patient with other professionals? @ -No Did you reconcile home meds? @ -No Was smoking cessation discussed for >3mins.? @ -No Was critical care preformed (if so, how long)? @ -No Were there social determinants of health that impacted care today? How? (Homelessness, low income, unemployed, alcoholism, drug addiction, transportation, low edu. Level, literacy, decrease access to med. care, shelter, rehab)? @ -No Was there de-escalation of care discussed even if they declined? (Discuss DNR or withdrawal of care, Hospice)? @ -No What co-morbidities impacted this encounter? (DM, HTN, Smoking, COPD, CAD, Cancer, CVA, Hep., AIDS, mental health diagnosis, sleep apnea, morbid obesity)? @ -None Was patient admitted / discharged? @ -Discharged. Rapid strep test negative. X-ray of the chest and soft tissue neck demonstrate no acute process. GI cocktail administered. Patient was drinking coffee in the emergency department without difficulty or any signs of distress. Discussed the possibility of symptoms being related to GERD. She was given information for follow-up with GI for further evaluation. Also discussed the possibility that she may need an EGD if this becomes a persistent issue. Prescription for pantoprazole provided with dosing instructions reviewed. Undiagnosed new problem with uncertain prognosis? @ -None Drug Therapy requiring intensive monitoring for toxicity (Heparin, Nitro, Insulin, Cardizem)? @ -None Were any procedures done? @ -None Diagnosis/symptom? @ -Difficulty swallowing Acute, or Chronic, or Acute on Chronic? @ -Acute Uncomplicated (without systemic symptoms) or Complicated (systemic symptoms)? @ -Uncomplicated Side effects of treatment? @ -None Exacerbation, Progression, or Severe Exacerbation] @ -Not applicable Poses a threat to life or bodily function? @ -No Return precautions reviewed in depth, the patient is instructed to return to the emergency department with any new, worsening, or concerning symptoms. Patient verbalized understanding. This case was discussed in detail with the attending ED physician, Dr. Jacob. Presentation, findings, and treatment plan discussed in detail as well. - Lab Data Lab Results 01/15/24 Range/Units 11:38 Group A Strep (PCR) NOT DETECTED (Not Detectd) - Radiology Data Radiology results: report reviewed, image reviewed Disposition Clinical Impression: Difficulty swallowing Disposition: HOME SELF-CARE Instructions (If sedation given, give patient instructions): GERD (Gastroesophageal Reflux Disease) (ED) Additional Instructions: Return to the emergency department with any new, worsening, or concerning symp toms. Begin taking the pantoprazole daily for 2 weeks. Try to take this 30 to 60 minutes before eating or taking other medication. Follow up with your primary care provider in 1-2 days. If symptoms do not improve, contact the commercial journeyman electrician as listed below for a follow-up appointment. Prescriptions: Pantoprazole Sodium 40 mg PO DAILY #14 tab Is patient prescribed a controlled substance at d/c from ED?: No Referrals: None,Stated [Primary Care Provider] - 1-2 days Cee Herrera MD [STAFF PHYSICIAN] - 1-2 days Time of Disposition: 12:52
--- NOTE | 2024-01-15 12:04 | XR ---
EXAMINATION TYPE: XR chest 2V DATE OF EXAM: 01/15/2024 COMPARISON: 03/16/2018 TECHNIQUE: PA and lateral views submitted. HISTORY: Pain FINDINGS: The lungs are clear and there is no pneumothorax, pleural effusion, or focal pneumonia. Heart size normal and no overt failure. Osseous structures intact. IMPRESSION: 1. No acute process.
--- NOTE | 2024-01-15 12:13 | XR ---
EXAMINATION TYPE: XR soft tissue neck DATE OF EXAM: 01/15/2024 COMPARISON: NONE HISTORY: Pain TECHNIQUE: Two views are submitted. FINDINGS: The odontoid is intact. There are no compression deformities. The prevertebral soft tissue structur es are within normal limits. Mild hypertrophic changes of the lower cervical spine. There is straightening of the cervical spine. Vague nodular densities overlying the right clavicle could be within the bone marrow or within the ri ght lung apex IMPRESSION: 1. Airways patent with no definite abnormality identified.
[2024-01-15] MEDS: MAG HYDROX/AL HYDROX/SIMETH 30 ML, HYOSCYAMINE ELIXIR 10 ML, LIDOCAINE VISCOUS 2% 10 ML PO STA (12:32)
[2024-01-15 13:02] VITALS: BP 162/68; PULSE 68; RESP 18; TEMP 98
== END 2024-01-15 13:01 | disposition home or self-care (01) ==
LOC: EC 10:27
DX: R13.10 Dysphagia, unspecified (principal)
CPT/HCPCS: 70360; 71046; 87651; 99283